=== PATIENT | male | born 1935 | race Caucasian/White ===

== ENCOUNTER 2017-10-02 11:41 | Emergency (ER) | payer OTHER ==
[~2017-10-02] VITALS: Ht 190.5 cm; Wt 95.7 kg
[~2017-10-02 11:41] MED LIST: CIPRO500 MG PO; FLOMAX0.4 MG PO; GLIPIZIDE5 MG PO; HYDROCHLOROT PO; HYDROCHLOROTH12.5 MG PO; KEPPRA500 MG PO; LANTUS100 UNITS/ SC; LISINOPRIL10 MG PO; METFORMIN HCL1000 MG PO; NOVOLIN SC; PRAVASTATIN SOD40 MG PO; ULTRAM 50MG50 MG PO; XARELTO10 MG PO; [UNRECOGNIZED DRUG - OTHER]; [UNRECOGNIZED DRUG - OTHER]
[2017-10-02] MEDS ORDERED: HYDROCODONE/APAP 5MG-325MG TAB PO ONE (12:15)
== END 2017-10-02 15:02 | disposition other institution (70) ==
LOC: FSED 11:41
DX: R10.2 Pelvic and perineal pain (principal); M54.5 Low back pain; R26.2 Difficulty in walking, not elsewhere classified; C18.9 Malignant neoplasm of colon, unspecified
CPT/HCPCS: 72131; 99284